=== PATIENT | female | born 1980 | race Caucasian/White ===

== ENCOUNTER 2023-03-09 20:30 | Inpatient (IN) | payer OTHER ==
[~2023-03-09 20:30] MED LIST: Iopamidol 370 76% 100 ML VIAL ONE
[2023-03-09 22:45] LABS: #Basophils 0.1 thou/uL (0.0-0.2); #Eosinphils 0.8 thou/uL (0.0-0.7); #Monocytes 0.6 thou/uL (0.11-0.59); #Neutrophils 7.7 thou/uL (1.40-6.50); %Basophils 0.8 % (0.0-1.0); %Eosinophils 6.1 % (0.0-10.0); %Lymphocytes 26.4 % (21.0-51.0); %Monocytes 4.9 % (0.0-10.0); %Neutrophils 61.4 % (42.0-75.0); Hemoglobin 13.8 g/dL (12.0-16.0); Mean Corpuscular HGB CONC 31.8 g/dL (32.0-36.0); Mean Corpuscular Hemoglobin 26.5 pg (27.0-31.0); Mean Corpuscular Volume 83.5 fl (78.0-98.0); Mean Platelet Volume 10.7 fL (7.4-10.4); Platelet Count 353 10x3/uL (130-400); RBC Distribution Width 15.4 % (11.5-14.5); White Blood Cell (WBC) Count 12.6 10x3/uL (4.8-10.8)
[2023-03-09 23:06] LABS: ALT (SGPT) 37 U/L (8-55); AST (SGOT) 43 U/L (5-34); Albumin 4.3 g/dL (3.5-5.0); Alkaline Phosphatase 117 U/L (40-110); Anion Gap 15 mmol/L (10-20); BUN (Urea Nitrogen) 7 mg/dL (7.0-18.7); Bilirubin, Total 0.3 mg/dL (0.2-1.2); Calc. Creatinine Clearance 0 mL/min (70-130); Calcium 9.5 mg/dL (7.8-10.44); Carbon Dioxide 25 mmol/L (22-29); Chloride 102 mmol/L (98-107); Estimated GFR 102; Globulin 4.2 g/dL (2.4-3.5); Glucose 197 mg/dL (70-105); Protein, Total 8.5 g/dL (6.0-8.3); Sodium 138 mmol/L (136-145)
[2023-03-09] MEDS ORDERED: Cefepime 2 GM VIAL ONE (23:58)
[2023-03-10] MEDS ORDERED: Morphine 4 MG/ML VIAL ONE (00:59)
[2023-03-10 02:00] LABS: Lactic Acid 1.9 mmol/L (0.5-2.2)
[2023-03-10] MEDS ORDERED: Acetaminophen 325 MG TAB PO PRN (02:05)
[2023-03-10] MEDS ORDERED: Dextrose 50% Abboject 50 ML SYRINGE SLOW IVP PRN (02:05)
[2023-03-10] MEDS ORDERED: HumaLOG 300 UNITS/3 ML VIAL SC PRN ×2 (02:05)
[2023-03-10] MEDS ORDERED: Ondansetron ODT 4 MG TAB PO PRN (02:05)
[2023-03-10] MEDS ORDERED: Dextrose 5% in Water 1,000 ML IV PRN (02:05)
[2023-03-10] MEDS ORDERED: Vancomycin 2 GM in Premix Bag 1 BAG IVPB SCH (02:15)
[2023-03-10] MEDS ORDERED: VANCOMYCIN 2 GRAM/500 ML BAG 2 GM in Premix Bag 1 BAG IVPB SCH (02:30)
[2023-03-10] MEDS ORDERED: Piperacillin/Tazobactam 4.5 GM in Sodium Chloride 0.9% 100 ML IVPB SCH ×3 (02:30→08:00)
[2023-03-10 02:42] VITALS: BMI 36.6
[2023-03-10] MEDS ORDERED: Methocarbamol 500 MG TAB PO PRN (02:47)
[2023-03-10] MEDS ORDERED: traMADol HCl 50 MG TAB PO SCH ×2 (03:00→09:00)
[2023-03-10] MEDS ORDERED: Atorvastatin Calcium 20 MG TAB PO SCH (03:00)
[2023-03-10] MEDS ORDERED: Sotalol HCl 80 MG TAB PO SCH (03:00)
[2023-03-10] MEDS ORDERED: Gabapentin 300 MG CAP PO SCH ×3 (03:00→16:00)
[2023-03-10] MEDS ORDERED: Insulin Glargine 30 UNITS/0.3 ML VIAL SC SCH ×2 (03:00→21:00)
[2023-03-10] MEDS ORDERED: Aluminum & Magnesium Hydroxide 60 ML, Lidocaine 2% Viscous Solution 30 ML, diphenhydrAM... SSW PRN (03:05)
[2023-03-10] MEDS: ACYCLOVIR SODIUM IVPB SCH ×3 (04:17→22:05)
[2023-03-10] MEDS: SODIUM CHLORIDE 0.9% IVPB SCH ×3 (04:17→22:05)
[2023-03-10] MEDS: Levothyroxine Sodium 88 MCG TAB PO SCH (05:24)
[2023-03-10] MEDS: Morphine 2 MG/ML VIAL SLOW IVP PRN ×3 (05:24→15:33)
[2023-03-10 06:01] LABS: #Basophils 0.1 thou/uL (0.0-0.2); #Eosinphils 0.6 thou/uL (0.0-0.7); #Monocytes 0.5 thou/uL (0.11-0.59); #Neutrophils 5.2 thou/uL (1.40-6.50); %Basophils 0.6 % (0.0-1.0); %Eosinophils 6.3 % (0.0-10.0); %Lymphocytes 34.6 % (21.0-51.0); %Monocytes 5.2 % (0.0-10.0); %Neutrophils 52.9 % (42.0-75.0); Hemoglobin 13.1 g/dL (12.0-16.0); Mean Corpuscular HGB CONC 30.7 g/dL (32.0-36.0); Mean Corpuscular Hemoglobin 26.1 pg (27.0-31.0); Mean Corpuscular Volume 85.2 fl (78.0-98.0); Mean Platelet Volume 10.6 fL (7.4-10.4); Platelet Count 262 10x3/uL (130-400); RBC Distribution Width 15.6 % (11.5-14.5); Red Blood Cell (RBC) Count 5.01 mill/uL (4.20-5.40); White Blood Cell (WBC) Count 9.8 10x3/uL (4.8-10.8)
[2023-03-10 06:23] LABS: ALT (SGPT) 31 U/L (8-55); AST (SGOT) 37 U/L (5-34); Albumin 3.6 g/dL (3.5-5.0); Alkaline Phosphatase 96 U/L (40-110); Anion Gap 14 mmol/L (10-20); BUN (Urea Nitrogen) 7 mg/dL (7.0-18.7); Bilirubin, Total 0.4 mg/dL (0.2-1.2); Calc. Creatinine Clearance 175 mL/min (70-130); Calcium 8.2 mg/dL (7.8-10.44); Carbon Dioxide 24 mmol/L (22-29); Chloride 107 mmol/L (98-107); Estimated GFR 112; Globulin 3.4 g/dL (2.4-3.5); Glucose 145 mg/dL (70-105); Potassium 3.8 mmol/L (3.5-5.1); Sodium 141 mmol/L (136-145)
[2023-03-10] MEDS ORDERED: Acetaminophen 500 MG TAB PO PRN (08:41)
[2023-03-10] MEDS ORDERED: SEMAGLUTIDE 8 MG/3 ML SC SCH (09:00)
[2023-03-10] MEDS ORDERED: Heparin 5,000 UNITS/ML VIAL SC SCH (09:00)
[2023-03-10] MEDS: Sotalol HCl 80 MG TAB PO SCH ×2 (09:35→22:04)
[2023-03-10] MEDS: traMADol HCl 50 MG TAB PO PRN ×2 (09:35→15:21)
[2023-03-10] MEDS: Gabapentin 300 MG CAP PO SCH ×3 (09:36→22:04)
[2023-03-10] MEDS: guaiFENesin ER 600 MG TAB PO SCH ×2 (09:36→22:04)
[2023-03-10 10:12] LABS: Hemoglobin A1c 8.4 % (4.0-6.0)
[2023-03-10] MEDS: Empagliflozin 10 MG TAB PO SCH (11:17)
[2023-03-10] MEDS: Acetaminophen 500 MG TAB PO SCH ×3 (12:06→17:54)
[2023-03-10] MEDS: Vancomycin 1.5 GRAM/300 ML BAG 1.5 GM in Premix Bag 1 BAG IVPB SCH (15:21)
[2023-03-10] MEDS: Piperacillin/Tazobactam 3.375 GM in Sodium Chloride 0.9% 100 ML IVPB SCH (17:54)
[2023-03-10] MEDS: Atorvastatin Calcium 20 MG TAB PO SCH (22:03)
[2023-03-10] MEDS: Ibuprofen 800 MG TAB PO PRN (22:03)
[2023-03-10] MEDS: Insulin Glargine 30 UNITS/0.3 ML VIAL SC SCH (22:05)
[2023-03-11] MEDS: traMADol HCl 50 MG TAB PO PRN (00:01)
[2023-03-11] MEDS: Piperacillin/Tazobactam 3.375 GM in Sodium Chloride 0.9% 100 ML IVPB SCH ×4 (00:01→23:06)
[2023-03-11] MEDS: Acetaminophen 500 MG TAB PO SCH ×3 (01:17→19:22)
[2023-03-11] MEDS: Ondansetron PF 4 MG/2 ML Vial IVP PRN ×2 (01:22→18:03)
[2023-03-11] MEDS: ACYCLOVIR SODIUM IVPB SCH ×3 (05:48→21:52)
[2023-03-11] MEDS: Vancomycin 1.5 GRAM/300 ML BAG 1.5 GM in Premix Bag 1 BAG IVPB SCH ×2 (05:48→18:03)
[2023-03-11] MEDS: SODIUM CHLORIDE 0.9% IVPB SCH ×3 (05:48→21:52)
[2023-03-11] MEDS: Levothyroxine Sodium 88 MCG TAB PO SCH (05:50)
[2023-03-11] MEDS: Ibuprofen 800 MG TAB PO PRN (05:51)
[2023-03-11] MEDS: Sotalol HCl 80 MG TAB PO SCH ×2 (05:52→21:55)
[2023-03-11] MEDS: Empagliflozin 10 MG TAB PO SCH (09:07)
[2023-03-11] MEDS: Gabapentin 300 MG CAP PO SCH ×3 (09:07→21:53)
[2023-03-11] MEDS: guaiFENesin ER 600 MG TAB PO SCH ×2 (09:08→21:54)
[2023-03-11 09:33] LABS: #Basophils 0.1 thou/uL (0.0-0.2); #Eosinphils 0.7 thou/uL (0.0-0.7); #Monocytes 0.4 thou/uL (0.11-0.59); #Neutrophils 4.3 thou/uL (1.40-6.50); %Basophils 0.8 % (0.0-1.0); %Eosinophils 9.4 % (0.0-10.0); %Lymphocytes 26.1 % (21.0-51.0); %Monocytes 5.8 % (0.0-10.0); %Neutrophils 57.4 % (42.0-75.0); Mean Corpuscular HGB CONC 31.3 g/dL (32.0-36.0); Mean Corpuscular Hemoglobin 26.4 pg (27.0-31.0); Mean Corpuscular Volume 84.6 fl (78.0-98.0); Mean Platelet Volume 10.2 fL (7.4-10.4); Platelet Count 245 10x3/uL (130-400); RBC Distribution Width 15.1 % (11.5-14.5); Red Blood Cell (RBC) Count 4.54 mill/uL (4.20-5.40); White Blood Cell (WBC) Count 7.4 10x3/uL (4.8-10.8)
[2023-03-11 09:54] LABS: ALT (SGPT) 29 U/L (8-55); AST (SGOT) 31 U/L (5-34); Albumin 3.5 g/dL (3.5-5.0); Alkaline Phosphatase 92 U/L (40-110); Anion Gap 13 mmol/L (10-20); BUN (Urea Nitrogen) 7 mg/dL (7.0-18.7); Bilirubin, Total 0.5 mg/dL (0.2-1.2); Calc. Creatinine Clearance 196 mL/min (70-130); Calcium 8.1 mg/dL (7.8-10.44); Carbon Dioxide 24 mmol/L (22-29); Chloride 105 mmol/L (98-107); Estimated GFR 115; Globulin 3.1 g/dL (2.4-3.5); Glucose 117 mg/dL (70-105); Potassium 3.9 mmol/L (3.5-5.1); Protein, Total 6.6 g/dL (6.0-8.3); Sodium 138 mmol/L (136-145)
[2023-03-11] MEDS ORDERED: Oxymetazoline HCl 0.05% (30 ML BOT) ONE (11:39)
[2023-03-11] MEDS ORDERED: Midazolam HCl 2 mg/2 ml Vial ONE ×2 (12:32→13:27)
[2023-03-11] MEDS ORDERED: Famotidine/PF 20 mg/2ml Vial ONE (12:32)
[2023-03-11] MEDS ORDERED: Lidocaine 1% (PF) 30 ML VIAL ONE (12:57)
[2023-03-11] MEDS ORDERED: EPINEPHrine 1 MG/ML AMP ONE (12:57)
[2023-03-11] MEDS ORDERED: Vasopressin 20 UNITS/ML VIAL ONE (13:03)
[2023-03-11] MEDS ORDERED: SUGAMMADEX SODIUM 200 MG/2 ML VIAL ONE (13:03)
[2023-03-11] MEDS ORDERED: fentaNYL 50 mcg/mL 1 mL Vial ONE (13:03)
[2023-03-11] MEDS ORDERED: Lidocaine 1% PF 5 ML VIAL ONE (13:52)
[2023-03-11] MEDS ORDERED: Glycopyrrolate 0.2 MG/ML 5 ML SYRINGE ONE (13:52)
[2023-03-11] MEDS ORDERED: PROPOFOL 200 MG/20 ML VIAL ONE (13:52)
[2023-03-11] MEDS ORDERED: NEOSTIGMINE 3 MG/3 ML SYR 3 MG/3 ML SYRINGE ONE (13:52)
[2023-03-11] MEDS ORDERED: Ondansetron PF 4 MG/2 ML Vial ONE (13:52)
[2023-03-11] MEDS ORDERED: Rocuronium Bromide 10 MG/ML (10ML VIAL) ONE (13:52)
[2023-03-11] MEDS ORDERED: Succinylcholine Chloride 100 MG/5 ML SYRINGE FS ONE (13:52)
[2023-03-11] MEDS ORDERED: Promethazine HCl 25 MG/ML VIAL IM PRN (14:16)
[2023-03-11] MEDS ORDERED: Ondansetron HCl/PF 4 MG/2 ML Vial IVP PRN (14:16)
[2023-03-11] MEDS ORDERED: fentaNYL PF 100 MCG/2 ML SYRINGE ONE (15:07)
[2023-03-11] MEDS: Oxymetazoline HCl 0.05% (30 ML BOT) NS PRN ×2 (15:35→21:34)
[2023-03-11] MEDS: Sodium Chloride 0.65% Nasal 44 ML BOT EA NARE SCH ×3 (16:43→22:07)
[2023-03-11] MEDS: Hydrocodone-Acetamin 15 ML UDCUP PO PRN (17:54)
[2023-03-11] MEDS ORDERED: Hydrocodone-Acetamin 15 ML UDCUP PO SCH (19:15)
[2023-03-11] MEDS ORDERED: Promethazine HCl 25 MG in Sodium Chloride 0.9% 50 ML IVPB SCH (21:00)
[2023-03-11] MEDS: Atorvastatin Calcium 20 MG TAB PO SCH (21:54)
[2023-03-11] MEDS: Insulin Glargine 30 UNITS/0.3 ML VIAL SC SCH (21:55)
[2023-03-11] MEDS ORDERED: Promethazine HCl 12.5 MG in Sodium Chloride 0.9% 50 ML IVPB PRN (22:03)
[2023-03-12] MEDS: Acetaminophen 500 MG TAB PO SCH ×2 (01:27→10:31)
[2023-03-12] MEDS: Oxymetazoline HCl 0.05% (30 ML BOT) NS PRN ×3 (01:27→12:45)
[2023-03-12] MEDS: Sodium Chloride 0.65% Nasal 44 ML BOT EA NARE SCH ×4 (01:29→16:38)
[2023-03-12 02:16] LABS: #Basophils 0.1 thou/uL (0.0-0.2); #Eosinphils 0.6 thou/uL (0.0-0.7); #Monocytes 0.4 thou/uL (0.11-0.59); #Neutrophils 6.8 thou/uL (1.40-6.50); %Basophils 0.6 % (0.0-1.0); %Lymphocytes 22.3 % (21.0-51.0); %Monocytes 4.3 % (0.0-10.0); %Neutrophils 66.3 % (42.0-75.0); Hemoglobin 11.2 g/dL (12.0-16.0); Mean Corpuscular HGB CONC 32.6 g/dL (32.0-36.0); Mean Corpuscular Hemoglobin 27.1 pg (27.0-31.0); Mean Corpuscular Volume 83.1 fl (78.0-98.0); Mean Platelet Volume 10.3 fL (7.4-10.4); Platelet Count 238 10x3/uL (130-400); RBC Distribution Width 15.2 % (11.5-14.5); Red Blood Cell (RBC) Count 4.14 mill/uL (4.20-5.40); White Blood Cell (WBC) Count 10.3 10x3/uL (4.8-10.8)
[2023-03-12 02:35] LABS: Vancomycin, Trough 10.6 ug/mL
[2023-03-12 02:54] LABS: ALT (SGPT) 29 U/L (8-55); AST (SGOT) 32 U/L (5-34); Albumin 3.4 g/dL (3.5-5.0); Alkaline Phosphatase 90 U/L (40-110); Anion Gap 12 mmol/L (10-20); BUN (Urea Nitrogen) 4 mg/dL (7.0-18.7); Bilirubin, Total 0.5 mg/dL (0.2-1.2); Calc. Creatinine Clearance 183 mL/min (70-130); Carbon Dioxide 24 mmol/L (22-29); Chloride 105 mmol/L (98-107); Estimated GFR 114; Globulin 3.1 g/dL (2.4-3.5); Glucose 133 mg/dL (70-105); Potassium 3.8 mmol/L (3.5-5.1); Protein, Total 6.5 g/dL (6.0-8.3); Sodium 137 mmol/L (136-145)
[2023-03-12] MEDS: Hydrocodone-Acetamin 15 ML UDCUP PO PRN ×3 (03:02→10:32)
[2023-03-12] MEDS: Vancomycin 1.5 GRAM/300 ML BAG 1.5 GM in Premix Bag 1 BAG IVPB SCH ×2 (03:03→16:38)
[2023-03-12] MEDS: Levothyroxine Sodium 88 MCG TAB PO SCH (06:04)
[2023-03-12] MEDS: ACYCLOVIR SODIUM IVPB SCH (06:04)
[2023-03-12] MEDS: SODIUM CHLORIDE 0.9% IVPB SCH (06:04)
[2023-03-12 06:14] LABS: PTT 29.4 sec (22.9-36.1)
[2023-03-12 08:02] VITALS: BP 130/84; TEMP 97.7
[2023-03-12] MEDS: Gabapentin 300 MG CAP PO SCH ×2 (08:16→16:38)
[2023-03-12] MEDS: traMADol HCl 50 MG TAB PO PRN (08:18)
[2023-03-12] MEDS: guaiFENesin ER 600 MG TAB PO SCH (08:21)
[2023-03-12] MEDS: Sotalol HCl 80 MG TAB PO SCH (08:22)
[2023-03-12] MEDS: Piperacillin/Tazobactam 3.375 GM in Sodium Chloride 0.9% 100 ML IVPB SCH (08:23)
[2023-03-12] MEDS ORDERED: Polyethylene Glycol 3350 17 GM Packet PO SCH (09:00)
[2023-03-12] MEDS: Empagliflozin 10 MG TAB PO SCH (10:32)
[2023-03-12] MEDS: Acyclovir 800 mg Tablet PO SCH ×2 (12:45→16:38)
[2023-03-17 15:13] LABS: Fungus Stain Final report (.)
[2023-03-18 12:37] LABS: Fungus Stain Final report (.)
== END 2023-03-12 17:25 | disposition home or self-care (01) | DRG 144 ==
LOC: ERS 20:30 → T4-A 03-10 02:05 → OBSVTOIN 03-10 12:10
PROVIDERS: ADMIT Family Medicine; ATTEND Family Medicine
PROC: 09BM0ZZ Excision of Nasal Septum, Open Approach (ICD-10-PCS; principal; 2023-03-11)
PROC: 09TV8ZZ Resection of Left Ethmoid Sinus, Via Natural or Artificial Opening Endoscopic (ICD-10-PCS; 2023-03-11)
PROC: 09TU8ZZ Resection of Right Ethmoid Sinus, Via Natural or Artificial Opening Endoscopic (ICD-10-PCS; 2023-03-11)
PROC: 09SL0ZZ Reposition Nasal Turbinate, Open Approach (ICD-10-PCS; 2023-03-11)
PROC: 8E09XBZ Computer Assisted Procedure of Head and Neck Region (ICD-10-PCS; 2023-03-11)
DX: J34.2 Deviated nasal septum (principal); H05.013 Cellulitis of bilateral orbits; L03.211 Cellulitis of face; J01.40 Acute pansinusitis, unspecified; J32.9 Chronic sinusitis, unspecified; E11.9 Type 2 diabetes mellitus without complications; J34.3 Hypertrophy of nasal turbinates; B02.9 Zoster without complications; I50.9 Heart failure, unspecified; I48.0 Paroxysmal atrial fibrillation; M32.9 Systemic lupus erythematosus, unspecified; M54.9 Dorsalgia, unspecified; G89.29 Other chronic pain; J30.89 Other allergic rhinitis; Z90.49 Acquired absence of other specified parts of digestive tract; Z88.8 Allergy status to other drugs, medicaments and biological substances; Z79.01 Long term (current) use of anticoagulants; Z79.4 Long term (current) use of insulin; Z79.84 Long term (current) use of oral hypoglycemic drugs; Z79.899 Other long term (current) drug therapy; Z79.890 Hormone replacement therapy; R04.0 Epistaxis
CPT/HCPCS: 36415; 36416; 70450; 70487; 80053; 80202; 83036; 83605; 85025; 85610; 85730; 87040; 87070; 87081; 87102; 87205; 87206; 93005; 93010; 96367; 96374; 96375; 96376; G0378; J0133; J0171; J0692; J1644; J1815; J2001; J2250; J2270; J2272; J2405; J2543; J2550; J2704; J3010; J3370; J3490; J7050; Q0163; Q9967; S0028

== ENCOUNTER 2023-07-08 07:59 | Day surgery (SDC) | payer OTHER ==
[2023-07-07 11:55] VITALS: BMI 37.5
[2023-07-08] MEDS ORDERED: Oxymetazoline HCl 0.05% (30 ML BOT) ONE (09:59)
[2023-07-08 10:27] LABS: Hematocrit 39.4 % (36.0-47.0)
[2023-07-08] MEDS ORDERED: fentaNYL PF 100 MCG/2 ML SYRINGE ONE ×3 (10:46→12:43)
[2023-07-08] MEDS ORDERED: SUGAMMADEX SODIUM 200 MG/2 ML VIAL ONE (10:54)
[2023-07-08] MEDS ORDERED: EPINEPHrine 1 MG/ML AMP ONE (10:55)
[2023-07-08] MEDS ORDERED: Lidocaine 1% (PF) 30 ML VIAL ONE (10:55)
[2023-07-08] MEDS ORDERED: Famotidine/PF 20 mg/2ml Vial ONE (11:00)
[2023-07-08] MEDS ORDERED: Ondansetron PF 4 MG/2 ML Vial ONE (11:08)
[2023-07-08] MEDS ORDERED: Lidocaine 1% PF 5 ML VIAL ONE (11:08)
[2023-07-08] MEDS ORDERED: PROPOFOL 200 MG/20 ML VIAL ONE (11:08)
[2023-07-08] MEDS ORDERED: Rocuronium Bromide 10 MG/ML (10ML VIAL) ONE (11:08)
[2023-07-08] MEDS ORDERED: Midazolam HCl 2 mg/2 ml Vial ONE (11:09)
[2023-07-08] MEDS ORDERED: Meperidine HCl/PF 25 MG/ML VIAL ONE (12:22)
[2023-07-08] MEDS ORDERED: diphenhydrAMINE 50 MG/ML VIAL ONE (12:22)
[2023-07-08] MEDS ORDERED: HYDROcodone/Acetaminophen 5/325 mg Tablet ONE (13:29)
[2023-07-21 13:14] LABS: Fungus Culture Final report (.); Fungus Culture Result 1 Trichophyton species (.)
== END 2023-07-08 14:00 | disposition home or self-care (01) ==
LOC: SDC 07:59
PROVIDERS: ATTEND Otolaryngology Plastic Surgery within the Head & Neck
PROC: 09BU8ZZ Excision of Right Ethmoid Sinus, Via Natural or Artificial Opening Endoscopic (ICD-10-PCS; principal; 2023-07-08)
PROC: 09BV8ZZ Excision of Left Ethmoid Sinus, Via Natural or Artificial Opening Endoscopic (ICD-10-PCS; principal; 2023-07-08)
PROC: 09BS8ZZ Excision of Right Frontal Sinus, Via Natural or Artificial Opening Endoscopic (ICD-10-PCS; principal; 2023-07-08)
PROC: 09BT8ZZ Excision of Left Frontal Sinus, Via Natural or Artificial Opening Endoscopic (ICD-10-PCS; principal; 2023-07-08)
DX: J32.4 Chronic pansinusitis (principal); J30.89 Other allergic rhinitis; J33.9 Nasal polyp, unspecified; J34.3 Hypertrophy of nasal turbinates; J34.89 Other specified disorders of nose and nasal sinuses; E11.9 Type 2 diabetes mellitus without complications; Z88.2 Allergy status to sulfonamides; Z88.1 Allergy status to other antibiotic agents
CPT/HCPCS: 85014; 87070; 87102; 87205; J0171; J1200; J2001; J2175; J2250; J2405; J2704; S0028